=== PATIENT | male | born 1960 | race African-American/Black ===

== ENCOUNTER 2021-11-08 09:50 | Outpatient (CLI) | payer MEDICARE | END 2021-11-08 09:51 | disposition home or self-care (01) | LOC: EDSEX 09:50 → RAD 09:50 | PROVIDERS: ATTEND Internal Medicine | DX: R06.02 Shortness of breath (principal); M54.2 Cervicalgia; M25.521 Pain in right elbow; M47.812 Spondylosis without myelopathy or radiculopathy, cervical region; Z12.5 Encounter for screening for malignant neoplasm of prostate; E11.9 Type 2 diabetes mellitus without complications; G89.4 Chronic pain syndrome | CPT/HCPCS: 71046; 72040; 73080; 80061; 82043; 83036; G0103; 36415; 80053; 84443; 85025 ==

== ENCOUNTER 2021-11-23 15:15 | Emergency (ER) | payer MEDICARE ==
[2021-11-23] MEDS ORDERED: Enoxaparin Sodium 100 MG/ML SYRINGE ONE (16:25)
[2021-11-23 16:33] LABS: #Eosinphils 0.7 thou/uL (0.0-0.7); #Lymphocytes 1.5 thou/uL (1.20-3.40); #Monocytes 0.6 thou/uL (0.11-0.59); #Neutrophils 4.3 thou/uL (1.40-6.50); %Basophils 0.3 % (0.0-1.0); %Eosinophils 9.6 % (0.0-10.0); %Lymphocytes 20.8 % (21.0-51.0); %Neutrophils 61.3 % (42.0-75.0); Hemoglobin 15.9 g/dL (14.0-18.0); Mean Corpuscular HGB CONC 33.2 g/dL (32.0-36.0); Mean Corpuscular Volume 87.3 fL (78.0-98.0); Mean Platelet Volume 6.8 fL (7.4-10.4); Platelet Count 206 thou/uL (130-400); RBC Distribution Width 12.4 % (11.5-14.5)
[2021-11-23 16:46] LABS: INR-International Normal Ratio 0.9; Prothrombin Time 12.3 sec (12.0-14.7)
[2021-11-23 16:47] LABS: PTT 30.4 sec (22.9-36.1)
[2021-11-23 16:50] LABS: ALT (SGPT) 19 U/L (8-55); AST (SGOT) 20 U/L (5-34); Albumin 3.5 g/dL (3.4-4.8); Alkaline Phosphatase 62 U/L (40-110); Anion Gap 14 mmol/L (10-20); BUN (Urea Nitrogen) 8 mg/dL (8.4-25.7); Bilirubin, Total 0.6 mg/dL (0.2-1.2); Calc. Creatinine Clearance 0 mL/min (70-130); Calcium 8.6 mg/dL (7.8-10.44); Carbon Dioxide 23 mmol/L (23-31); Chloride 102 mmol/L (98-107); Estimated GFR 55; Globulin 2.4 g/dL (2.4-3.5); Glucose 135 mg/dL (80-115); Potassium 4.3 mmol/L (3.5-5.1); Protein, Total 5.9 g/dL (5.8-8.1); Sodium 135 mmol/L (136-145)
== END 2021-11-23 17:11 | disposition home or self-care (01) ==
LOC: ERS 15:15
DX: I82.401 Acute embolism and thrombosis of unspecified deep veins of right lower extremity (principal); E11.9 Type 2 diabetes mellitus without complications; F17.220 Nicotine dependence, chewing tobacco, uncomplicated; Z79.84 Long term (current) use of oral hypoglycemic drugs
CPT/HCPCS: 36415; 80053; 85025; 85610; 85730; 93970; 94760; 96372; J1650

== ENCOUNTER 2022-01-26 08:00 | Outpatient (CLI) | payer MEDICARE ==
[2022-01-26] MEDS ORDERED: Iopamidol 370 76% 100 ML VIAL ONE (12:27)
== END 2022-01-26 08:01 | disposition home or self-care (01) ==
LOC: CT 08:00
PROVIDERS: ATTEND Thoracic Surgery (Cardiothoracic Vascular Surgery)
DX: I70.218 Atherosclerosis of native arteries of extremities with intermittent claudication, other extremity (principal); I70.202 Unspecified atherosclerosis of native arteries of extremities, left leg; K57.90 Diverticulosis of intestine, part unspecified, without perforation or abscess without bleeding
CPT/HCPCS: 75635; 82565; Q9967